=== PATIENT | male | born 1980 | race Caucasian/White ===

== ENCOUNTER 2020-07-24 12:05 | Outpatient (CLI) | payer OTHER, SELFPAY ==
[2020-07-24 12:23] LABS: Basophils Absolute Auto 0.01 K/mm3 (0.00-0.10); Basophils Percent Auto 0.2 % (0.0-1.0); Eosinophils Absolute Auto 0.04 K/mm3 (0.02-0.50); Eosinophils Percent Auto 0.6 % (1.0-6.0); Hematocrit 43.6 % (40.0-54.0); Hemoglobin 15.1 g/dL (14.0-18.0); Immature Granulocyte Absolute 0.02 K/mm3 (0.00-0.00); Immature Granulocyte Percent A 0.3 % (0.0-0.0); Lymphocytes Absolute Auto 1.54 K/mm3 (1.10-4.50); Lymphocytes Percent Auto 23.8 % (18.0-42.0); Mean Corpuscular HGB Conc 34.6 g/dL (32.0-36.0); Mean Corpuscular Hemoglobin 28.8 pg (27.0-31.0); Mean Platelet Volume 9.1 fl (8.7-11.0); Monocytes Absolute Auto 0.48 K/mm3 (0.10-0.90); Monocytes Percent Auto 7.4 % (2.0-11.0); Neutrophils Absolute Auto 4.4 K/mm3 (1.7-7.2); Neutrophils Percent Auto 67.7 % (50.0-70.0); Platelet Count Result 207 K/mm3 (150-420); Red Blood Count 5.25 M/mm3 (4.70-6.10); Red Cell Distribution Width 13.1 % (11.6-14.4); White Blood Count 6.5 K/mm3 (4.8-10.8)
[2020-07-24 12:38] LABS: Alanine Aminotransferase 48 U/L (16-63); Albumin Level 4.1 g/dL (3.4-5.0); Alkaline Phosphatase 85 U/L (46-116); Anion Gap 9 mmol/L (8-16); Aspartate Amino Transferase 31 U/L (15-37); Bilirubin,Total 0.4 mg/dL (0.00-1.00); Blood Urea Nitrogen 18 mg/dL (7-18); CRP 1.2 mg/dL (0.0-0.9); Calcium 9.2 mg/dL (8.5-10.1); Carbon Dioxide 28 mmol/L (21-32); Chloride 105 mmol/L (98-108); Creatine Kinase 430 U/L (39-308); Estimated Glomerular Filt Rate > 60; Glucose 96 mg/dL (70-99); Osmolality Calculated 295 mOsm/kg (285-295); Potassium 4.1 mmol/L (3.5-5.1); Sodium 142 mmol/L (136-145); Total Protein 7.4 g/dL (6.4-8.2); Uric Acid 7.1 mg/dL (3.5-7.2)
== END 2020-07-24 12:06 | disposition home or self-care (01) ==
LOC: CHSLAB 12:07
PROVIDERS: PCP Family Medicine; Visit Provider Nurse Practitioner Family
DX: R61 Generalized hyperhidrosis (principal); M79.604 Pain in right leg; Z01.84 Encounter for antibody response examination
CPT/HCPCS: 36415; 80053; 82550; 84550; 85025; 85380; 86140; 86769

== ENCOUNTER 2020-11-15 19:54 | Emergency (ER) | payer OTHER, SELFPAY ==
--- NOTE | 2020-11-15 21:59 | ED.BACK ---
HPI - Back Pain/Injury General Chief Complaint: Back Pain/Injury Stated Complaint: back pain on side and into leg left side Time Seen by Provider: 11/15/20 19:58 Source: patient and RN notes reviewed Mode of arrival: ambulatory Limitations: no limitations History of Present Illness MD elicited complaint: back pain Onset (ago): day(s) (1) Timing: progressively worsening Severity: moderate Pain scale (0-10): 7 Similar Symptoms Previously: Yes Quality: dull and aching Location: left lower back Radiation: other (left thigh) Exacerbating factors: movement Relieving factors: none Associated symptoms: denies other symptoms Treatments prior to arrival: NSAIDS Work related injury: No Related Data Allergies Allergy/AdvReac Type Severity Reaction Status Date / Time No Known Allergies Allergy Verified 11/15/20 22:06 Review of Systems Review of Systems: All systems reviewed & are unremarkable except as noted in HPI and below Musculoskeletal: Musculoskeletal: Reports back pain PMFSH Past Medical History Medical History Sciatica Exam Const: General: no acute distress Orientation/consciousness: patient oriented x3 Limitations: no limitations HENMT: Head: normal to inspection General nose exam: Normal external nose present and Normal nares present Mouth: Yes lip normal and Yes moist mucous membranes Teeth and gingiva: dentition normal Eyes: Conjunctivae: conjunctivae normal Pupils: Equal, round and reactive pupils present EOM: EOMs intact bilaterally Neck: Neck: normal visual inspection Chest: Chest palpation & inspection: normal inspection of the chest Resp: Effort & Inspection: normal respiratory effort Auscultation: clear to auscultation bilaterally Cardio: Rate: regular rate Rhythm: regular rhythm GI: Auscultation: normal bowel sounds : General: Yes bladder normal to palpation and Yes no CVA tenderness Male General Exam: Yes normal external exam Testes: Testes normal Back/Spine/Pelvis: Back: no CVA tenderness Skin: General skin exam: normal color Rashes: no rashes Neuro: General: patient oriented x3, moves all extremities, no meningeal signs, no focal motor deficits and CN's II-XI intact bilaterally Extrem: General: normal to inspection Other: minimally tender left lower back to upper buttock on deep palpation. Psych: Appearance: grossly normal Mental Status: mental status grossly normal Affect: normal affect Thought content: Yes Normal thought content present Course Course Emergency Course: pt was stable in the ED with less pain. Reevaluation(s) Date: 11/15/20 Time: 22:23 Vital Signs Vital signs: Vital Signs Temperature 36.3 C L 11/15/20 22:00 Pulse Rate 82 11/15/20 22:00 Respiratory Rate 18 11/15/20 22:00 Blood Pressure 120/84 11/15/20 22:00 Pulse Oximetry 97 11/15/20 22:00 Temperature 36.2 C L 11/15/20 22:32 Pulse Rate 80 11/15/20 22:32 Respiratory Rate 18 11/15/20 22:32 Blood Pressure 130/78 11/15/20 22:32 Pulse Oximetry 98 11/15/20 22:32 MDM - Back Pain/Injury Differential Diagnosis Differential diagnosis: Likely lumbar radiculopathy, sciatica and strain of lumbar region Medical Records Attestation: I reviewed the patient's medical records. Imaging Data Radiologist's impression: See report. Critical Care Time Critical Care Time Critical Care Time: No Total Critical Care Time: 0 Discharge Plan Discharge Clinical Impression: Sciatica Patient Disposition: Home, Self-Care Condition: Stable Instructions: Antibiotic Form, Sciatica (ED) Additional Instructions: Home. May RTC prn PMD in 1-2 days. Rx below. Prescriptions: New ibuprofen 800 mg tablet 800 mg PO TID Qty: 20 RF: 0 omeprazole magnesium [Prilosec OTC] 20 mg tablet,delayed release (DR/EC) 20 mg PO BID Qty: 20 RF: 0 tramadol 50 mg tablet 50 mg PO Q8H PRN (Reason: pain) Qty: 20 RF: 0
[2020-11-15 22:00] VITALS: BP 120/84; PULSE 82; RESP 18; TEMP 36.3; O2SAT 97
[2020-11-15] MEDS: KETOROLAC (*BKC) 60 MG/2 ML VIAL IM (22:10)
[2020-11-15 22:32] VITALS: BP 130/78; PULSE 80; RESP 18; TEMP 36.2; O2SAT 98
== END 2020-11-15 22:34 | disposition home or self-care (01) ==
PROVIDERS: Emergency Provider Emergency Medicine; PCP Family Medicine
DX: M54.30 Sciatica, unspecified side (principal)
CPT/HCPCS: 96372; 99283; J1885

== ENCOUNTER 2020-11-17 13:02 | Outpatient (CLI) | payer OTHER, SELFPAY ==
--- NOTE | ~2020-11-17 | XR_ITS ---
EXAMINATION: XR lumbar spine 2-3V EXAM DATE: 11/17/2020 13:40 INDICATION: Sharp mid lower lumbar to left groin x 4 days. TECHNIQUE: Lumber spine frontal, lateral, lateral L5-S1 projections for interpretation. Comparison is made to prior examination from 01/09/2019. FINDINGS: There are no acute fractures identified. Mild to moderate disc disease L3-4. The vertebral body and disc heights are otherwise well maintained. Mild to moderate diffuse lumbar facet arthropat hy. No spondylolysis. There are no bony erosions identified. Paraspinal soft tissue is unremarkable. Sacrum, sacroiliac joints, sacral arcuate lines are intact. Mild lumbar levoscoliosis. IMPRESSION: 1. Mild to moderate lumbar facet arthropathy and L3-4 disc disease. 2. Mild levoscoliosis. 3. No acute findings. Reviewed, dictated and finalized at location B.
[2020-11-17 13:17] LABS: Basophils Absolute Auto 0.03 K/mm3 (0.00-0.10); Basophils Percent Auto 0.4 % (0.0-1.0); Eosinophils Absolute Auto 0.06 K/mm3 (0.02-0.50); Eosinophils Percent Auto 0.8 % (1.0-6.0); Hematocrit 46.1 % (40.0-54.0); Hemoglobin 15.9 g/dL (14.0-18.0); Immature Granulocyte Absolute 0.03 K/mm3 (0.00-0.00); Immature Granulocyte Percent A 0.4 % (0.0-0.0); Lymphocytes Absolute Auto 1.59 K/mm3 (1.10-4.50); Lymphocytes Percent Auto 22.4 % (18.0-42.0); Mean Corpuscular HGB Conc 34.5 g/dL (32.0-36.0); Mean Platelet Volume 9.3 fl (8.7-11.0); Monocytes Percent Auto 7.1 % (2.0-11.0); Neutrophils Absolute Auto 4.9 K/mm3 (1.7-7.2); Neutrophils Percent Auto 68.9 % (50.0-70.0); Platelet Count Result 189 K/mm3 (150-420); Red Blood Count 5.49 M/mm3 (4.70-6.10); Red Cell Distribution Width 12.6 % (11.6-14.4); White Blood Count 7.1 K/mm3 (4.8-10.8)
[2020-11-17 13:24] LABS: Add Urine Microscopic? NO; Appearance Urine Clear (Clear); Bilirubin Urine Negative (Negative); Blood Urine Negative (Negative); Color Urine Light Yellow (Yellow); Glucose Urine UA Negative (Negative); Ketones Urine Negative (Negative); Leukocyte Esterase Ur Negative (Negative); Nitrate Urine Negative (Negative); Protein Urine Negative (Negative); Specific Grav Ur 1.025 (1.010-1.020); Urobilinogen Urine 0.2 mg/dL (0.2-1.0)
[2020-11-17 14:33] LABS: Alanine Aminotransferase 63 U/L (16-63); Alkaline Phosphatase 73 U/L (46-116); Anion Gap 10 mmol/L (8-16); Aspartate Amino Transferase 29 U/L (15-37); Bilirubin,Total 0.3 mg/dL (0.00-1.00); Blood Urea Nitrogen 13 mg/dL (7-18); Calcium 8.8 mg/dL (8.5-10.1); Carbon Dioxide 28 mmol/L (21-32); Chloride 104 mmol/L (98-108); Estimated Glomerular Filt Rate > 60; Glucose 84 mg/dL (70-99); Osmolality Calculated 293 mOsm/kg (285-295); Potassium 4.6 mmol/L (3.5-5.1); Sodium 142 mmol/L (136-145); Thyroid Stimulating Hormone 3.68 uIU/mL (0.36-3.74)
== END 2020-11-17 13:03 | disposition home or self-care (01) ==
LOC: CHSLAB 13:03
PROVIDERS: PCP Family Medicine; Visit Provider Family Medicine
DX: M54.16 Radiculopathy, lumbar region (principal); R53.83 Other fatigue
CPT/HCPCS: 36415; 72100; 80053; 81003; 84443; 85025

== ENCOUNTER 2020-11-27 16:46 | Outpatient (RCR) | payer OTHER, SELFPAY ==
--- NOTE | 2020-11-27 17:48 | PTOPEVAL ---
Thank you for referring ADÁN AC to [facility].? The patient is scheduled to be seen for therapy? ____x/week for ___ weeks. Please review, sign, date and return this plan of care AL. I agree with and certify that the following plan of care is medically necessary. Referring Physician Date Admitting Provider: Attending Provider: Alberto Herzog MD Referring Provider: *PT Outpatient Evaluation Start: 11/27/20 16:20 Freq: Status: Active Protocol: Document 11/27/20 16:47 ACR (Rec: 11/27/20 17:48 ACR [email or web address]) Therapy Assessment Status Assessment Status Assessment Status Evaluation Evaluation Information Problem Diagnosis low back pain Onset 11/13/20 Subjective Information Patient reports that his back Query Text:As Reported By Patient/ got stiff on 11/13/20 and he Family became bed ridden. He came to the ER and got an x-ray which showed a scoliosis and arthritis. He states that he has had this before, but not as bad as this time. He states the pain goes down the back/ side of the leg. Patient states that the most difficult activities for him is picking up objects, putting on socks and shoes, walking/standing for a period of time, and sitting with weight distrubuted evenly. He states it is difficult for his to walk by the end of the day and his goal is to be able to have no difficulty. Prior Level of Function Activity Level (Last 3 Months) Occupation industrial electrician Hand Dominance Left Activity of Daily Living Ability Independent Indoor/Home Mobility Independent Community Mobility Independent Stairs Ability Independent Functional Cognition (Planning, Shopping Independent , Taking Medications) Cooking Yes Cleaning Yes Laundry Yes Shopping Yes Driving Yes Pain Assessment Timing of Pain Assessment Timing of Pain Assessment Assessment Pain Scale Pain Scale Used Numeric (1 - 10) Self Report Pain Assessment Lower Back Reported Pain Level 4 Lowest Pain Intensity 0 Greatest Pain Intensity
--- NOTE | 2020-12-14 10:54 | PTOPEVAL ---
Thank you for referring Andrade Hagen to [facility].? The patient is scheduled to be seen for therapy? ____x/week for ___ weeks. Please review, sign, date and return this plan of care AL. I agree with and certify that the following plan of care is medically necessary. Referring Physician Date Admitting Provider: Attending Provider: Alberto Herzog MD Referring Provider: *PT Outpatient Evaluation Start: 11/27/20 16:20 Freq: Status: Active Protocol: Document 12/14/20 07:04 ACR (Rec: 12/14/20 08:09 ACR [email or web address]) Therapy Assessment Status Assessment Status Assessment Status Progress Evaluation Information Problem Diagnosis low back pain Onset 11/13/20 Subjective Information Patient states that since Query Text:As Reported By Patient/ beginning therapy he still has Family the pain, but it is becoming a lot looser. He states that he has no radiation around to his hip it is more localized to the left lower back. Pain Assessment Timing of Pain Assessment Timing of Pain Assessment Assessment Pain Scale Pain Scale Used Numeric (1 - 10) Self Report Pain Assessment Lower Back Reported Pain Level 4 Greatest Pain Intensity 8 Pain Score Pain Score 4: Self Report Interventions Used Interventions Used By Clinicians Activity or ADL's,Exercise Cervical and Lumbar ROM Lumbar ROM Lumbar Flexion Active Mid Simpson Query Text:Hands to: Lumbar Extension (0-40) 15 Query Text:Active in Degrees Lumbar Lateral Flexion Right (0-40) 25 Query Text:Active in Degrees Lumbar Lateral Flexion Left (0-40) 25 Query Text:Active in Degrees Lateral Rotation Right (0-45) 25 Query Text:Active in Degrees Lateral Rotation Left (0-45) 25 Query Text:Active in Degrees Lower Extremity Muscle Strength Testing Hip Strength Right Hip Flexion Strength 5 Normal Hip Abduction Strength 4+ Good + Left Hip Flexion Strength 4+ Good + Hip Abduction Strength 4 Good Knee Strength Right Knee Flexion Strength 5 Normal Knee Extension Strength 5 Normal Left Knee Flexion Strength 4+ Good + Knee Extension Strength 4+ Good + Muscle Length Testing Muscle Length Testing Piriformis w/Hip Flexion >90 Degrees (R) Moderate Tightness,(L) Severe Tightness Left Hamstring Length 27 Query Text:(90 - 90 Position) Right Hamstring Length 10 Query Text:(90 - 90 Position) Palpation Assessment Palpation Palpation
--- NOTE | 2020-12-24 07:35 | PTOPEVAL ---
Thank you for referring Andrade Hagen to [facility].? The patient is scheduled to be seen for therapy? ____x/week for ___ weeks. Please review, sign, date and return this plan of care AL. I agree with and certify that the following plan of care is medically necessary. Referring Physician Date Admitting Provider: Attending Provider: Alberto Herzog MD Referring Provider: *PT Outpatient Evaluation Start: 11/27/20 16:20 Freq: Status: Active Protocol: Document 12/24/20 06:53 ACR (Rec: 12/24/20 07:35 ACR [email or web address]) Therapy Assessment Status Assessment Status Assessment Status Progress Evaluation Information Problem Diagnosis low back pain Onset 11/13/20 Subjective Information Patient states that since Query Text:As Reported By Patient/ beginning therapy it feels Family looser, but continues to be achy. Patient states that he does not need help with putting on his socks and shoes anymore. He continues to have increased pain by the end of the day because he is on his feet all day for work. Patient states he is walking up to 2 miles a day with work. Pain Assessment Timing of Pain Assessment Timing of Pain Assessment Assessment Pain Scale Pain Scale Used Numeric (1 - 10) Self Report Pain Assessment Lower Back Reported Pain Level 3 Greatest Pain Intensity 6 Pain Score Pain Score 3: Self Report Interventions Used Interventions Used By Clinicians Activity or ADL's,Exercise Lower Extremity Muscle Strength Testing Hip Strength Right Hip Flexion Strength 5 Normal Hip Abduction Strength 4+ Good + Left Hip Flexion Strength 5 Normal Hip Abduction Strength 4+ Good + Knee Strength Right Knee Flexion Strength 5 Normal Knee Extension Strength 5 Normal Left Knee Flexion Strength 5 Normal Knee Extension Strength 5 Normal Muscle Length Testing Muscle Length Testing Piriformis w/Hip Flexion >90 Degrees (R) Moderate Tightness,(L) Moderate Tightness Left Hamstring Length 24 Query Text:(90 - 90 Position) Right Hamstring Length 10 Query Text:(90 - 90 Position) Palpation Assessment Palpation Palpation Patient is TTP along the L lumbar paraspinals and along the spine. General Exercise General Exercises Exercise Description - reeval x
== END 2020-12-24 09:00 | disposition home or self-care (01) ==
LOC: CHSPT 16:46
PROVIDERS: PCP Family Medicine; Visit Provider Family Medicine
DX: M54.16 Radiculopathy, lumbar region (principal)
CPT/HCPCS: 97014; 97110; 97161; G0283

== ENCOUNTER 2022-08-03 15:48 | Outpatient (CLI) | payer OTHER, SELFPAY ==
--- NOTE | ~2022-08-03 | XR_ITS ---
EXAM: XR ankle RT min 3V, XR foot RT min 3V DATE: 08/03/2022 16:45 HISTORY: FALL 1 MONTH AGO/MEDIAL SIDE PAIN AND ARCH OF FOOT PAIN . COMPARISON: None available. FINDINGS: Normal mineralization. No fracture or dislocation. No lytic or blastic lesion. Scattered m ild degenerative changes. Large os navicularis. Plantar and Achilles enthesopathy. No erosion or kelly osteal change. Soft tissues within normal limits. IMPRESSION: No acute osseous finding in the right ankle or right foot. Large os navicularis which can be a source of chronic medial pain in some patients. Reviewed, dictated and finalized at location K. IMPRESSION: No acute osseous finding in the right ankle or right foot. Large os navicularis which can be a source of chronic medial pain in some patients.
[2022-08-03 16:08] LABS: Basophils Absolute Auto 0.02 K/mm3 (0.00-0.10); Basophils Percent Auto 0.3 % (0.0-1.0); Eosinophils Absolute Auto 0.06 K/mm3 (0.02-0.50); Eosinophils Percent Auto 0.8 % (1.0-6.0); Hematocrit 44.6 % (40.0-54.0); Hemoglobin 15.1 g/dL (14.0-18.0); Immature Granulocyte Absolute 0.02 K/mm3 (0.00-0.00); Immature Granulocyte Percent A 0.3 % (0.0-0.0); Lymphocytes Absolute Auto 1.95 K/mm3 (1.10-4.50); Lymphocytes Percent Auto 24.9 % (18.0-42.0); Mean Corpuscular HGB Conc 33.9 g/dL (32.0-36.0); Mean Corpuscular Hemoglobin 29.2 pg (27.0-31.0); Mean Corpuscular Volume 86.3 fL (78.0-102.0); Mean Platelet Volume 9.4 fl (8.7-11.0); Monocytes Absolute Auto 0.61 K/mm3 (0.10-0.90); Monocytes Percent Auto 7.8 % (2.0-11.0); Neutrophils Absolute Auto 5.2 K/mm3 (1.7-7.2); Neutrophils Percent Auto 65.9 % (50.0-70.0); Platelet Count Result 191 K/mm3 (150-420); Red Blood Count 5.17 M/mm3 (4.70-6.10); White Blood Count 7.8 K/mm3 (4.8-10.8)
[2022-08-03 16:10] LABS: Appearance Urine Clear (Clear); Bilirubin Urine Negative (Negative); Blood Urine Negative (Negative); Color Urine Light Yellow (Yellow); Glucose Urine UA Negative (Negative); Ketones Urine Negative (Negative); Leukocyte Esterase Ur Negative (Negative); Nitrate Urine Negative (Negative); Protein Urine Negative (Negative); Urobilinogen Urine 0.2 mg/dL (0.2-1.0)
[2022-08-03 16:13] LABS: Add Urine Microscopic? NO
[2022-08-03 16:37] LABS: Alanine Aminotransferase 52 U/L (16-63); Albumin Level 3.9 g/dL (3.4-5.0); Alkaline Phosphatase 79 U/L (46-116); Anion Gap 8 mmol/L (8-16); Aspartate Amino Transferase 31 U/L (15-37); Bilirubin,Total 0.4 mg/dL (0.00-1.00); Blood Urea Nitrogen 13 mg/dL (7-18); Calcium 8.7 mg/dL (8.5-10.1); Carbon Dioxide 30 mmol/L (21-32); Chloride 107 mmol/L (98-108); Estimated Glomerular Filt Rate > 60; Glucose 93 mg/dL (70-99); Osmolality Calculated 300 mOsm/kg (285-295); Potassium 4.4 mmol/L (3.5-5.1); Sodium 145 mmol/L (136-145); Thyroid Stimulating Hormone 2.17 uIU/mL (0.36-3.74); Total Protein 6.9 g/dL (6.4-8.2)
[2022-08-07 05:22] LABS: Vitamin D 25 Hydroxy 81 ng/mL (30-100)
== END 2022-08-03 15:49 | disposition home or self-care (01) ==
LOC: CHSLAB 15:52
PROVIDERS: PCP Family Medicine; Visit Provider Family Medicine
DX: R53.83 Other fatigue (principal); M79.671 Pain in right foot; M89.9 Disorder of bone, unspecified
CPT/HCPCS: 36415; 73610; 73630; 80053; 81003; 82306; 84443; 85025